=== PATIENT | male | born 2005 | race African-American/Black ===

== ENCOUNTER 2024-03-18 23:14 | Emergency (ER) | payer SELFPAY ==
[2024-03-18] MEDS ORDERED: Lidocaine 1% PF 5 ML VIAL ONE (23:40)
== END 2024-03-19 00:39 | disposition home or self-care (01) ==
LOC: ERS 23:14
DX: S02.5XXA Fracture of tooth (traumatic), initial encounter for closed fracture (principal); S01.511A Laceration without foreign body of lip, initial encounter; S09.93XA Unspecified injury of face, initial encounter; W21.05XA Struck by basketball, initial encounter; Y93.67 Activity, basketball
CPT/HCPCS: 12011; 99282

== ENCOUNTER 2024-03-25 12:03 | Emergency (ER) | payer SELFPAY | END 2024-03-25 13:56 | disposition home or self-care (01) | LOC: ERS 12:03 | DX: S01.511D Laceration without foreign body of lip, subsequent encounter (principal); X58.XXXD Exposure to other specified factors, subsequent encounter ==